=== PATIENT | male | born 1955 | race Native Hawaiian/Other Pacific Islander ===

== ENCOUNTER 2019-10-11 | Inpatient (IN) | payer BC | END 2019-10-14 14:50 | disposition home or self-care (01) | DRG 641 | PROVIDERS: ADMIT Nurse Practitioner Family | DX: E87.1 Hypo-osmolality and hyponatremia (principal); G45.9 Transient cerebral ischemic attack, unspecified; E78.5 Hyperlipidemia, unspecified; L27.0 Generalized skin eruption due to drugs and medicaments taken internally; I10 Essential (primary) hypertension; F10.10 Alcohol abuse, uncomplicated; Z79.82 Long term (current) use of aspirin; Z79.899 Other long term (current) drug therapy; Z86.73 Personal history of transient ischemic attack (TIA), and cerebral infarction without residual deficits ==

== ENCOUNTER → 2019-11-04 | Outpatient (CLI) | payer BC | LOC: GMAM 14:05 | PROVIDERS: ATTEND Family Medicine | DX: J30.9 Allergic rhinitis, unspecified (principal); D72.1 Eosinophilia; E78.49 Other hyperlipidemia ==

== ENCOUNTER 2020-07-29 05:48 | Day surgery (SDC) | payer BC ==
[2020-07-29] MEDS ORDERED: PROPOFOL 200 MG/20 ML VIAL IV ONE (05:49)
[2020-07-29] MEDS ORDERED: LIDOCAINE 1% 10 ML VIAL INJ ONE (05:49)
[2020-07-29] MEDS ORDERED: LACTATED RINGERS 1,000 ML ONE (06:43)
[2020-07-29] MEDS ORDERED: LACTATED RINGERS 600 ML IVS ONE (10:41)
--- NOTE | 2020-07-29 11:00 | OP ---
DATE OF PROCEDURE: 07/29/20 PREOPERATIVE DIAGNOSIS: 1. Screening colonoscopy. POSTOPERATIVE DIAGNOSIS: 1. Diverticulosis, otherwise normal. PROCEDURE: 1. Colonoscopy. SURGEON: Yobani Hilton MD COMPLICATIONS: None. PLAN: Discharge. INDICATION: This is a 65-year-old man from [place] who presents for his first colonoscopy. He has had no obvious complications, no family history of colon cancer. He was consented for the procedure and brought to the Operating Suite. PROCEDURE: General anesthesia was induced in the lateral position. Digital rectal exam was normal. The colonoscope was inserted and passed without difficulty to the cecum as identified by the terminal ileum and the appendix versus a small tic was identified. We saw bile coming out of the terminal ileum. Upon withdrawal, all mucosal surfaces appeared normal with no inflammation. There was a good prep. No polyps were seen. There was some diverticulosis primarily on the left side of the colon. The rectum was normal as well. We aspirated upon withdrawal. The patient tolerated the procedure and was taken to Recovery to be discharged. Followup in 10 years for additional screening colonoscopy. #[id number] cc: Chase Aldridge MD MTDD
[2020-07-29 11:33] VITALS: BP 128/86; TEMP 97.6; O2SAT 98
== END 2020-07-29 11:40 | disposition home or self-care (01) ==
LOC: AMB 05:48
PROVIDERS: ATTEND Surgery
DX: Z12.11 Encounter for screening for malignant neoplasm of colon (principal); K57.30 Diverticulosis of large intestine without perforation or abscess without bleeding; I10 Essential (primary) hypertension; E78.00 Pure hypercholesterolemia, unspecified; Z88.8 Allergy status to other drugs, medicaments and biological substances; Z79.899 Other long term (current) drug therapy
CPT/HCPCS: 00812; 45378; J3490; J7120